=== PATIENT | female | born 1970 | race Caucasian/White ===

== ENCOUNTER 2018-03-04 00:13 | Emergency (ER) | payer OTHER ==
[~2018-03-04] VITALS: Ht 157.5 cm; Wt 60.8 kg
[2018-03-04 00:15] VITALS: BP 132/97
== END 2018-03-04 02:25 | disposition home or self-care (01) ==
LOC: ER 00:13
DX: R05 Cough (principal); R09.81 Nasal congestion
CPT/HCPCS: 71045; 99283; A4606; Z7610

== ENCOUNTER 2018-05-02 11:44 | Emergency (ER) | payer OTHER ==
[~2018-05-02] VITALS: Ht 154.9 cm; Wt 54.9 kg
[2018-05-02 12:29] LABS: APPEARANCE,URINE Slightly Cloudy (CLEAR); BILIRUBIN,URINE LARGE (NEGATIVE); BLOOD, URINE Trace-lysed Ery/uL (NEGATIVE); COLOR,URINE Dark (YELLOW); KETONES,URINE Trace (NEGATIVE); LEUKOCYTE ESTERASE ,URINE Negative (NEGATIVE); NITRITE, URINE Negative (NEGATIVE); PROTEIN,URINE 100 mg/dl (NEGATIVE); UGLUCOSE Negative (NEGATIVE)
[2018-05-02] MEDS ORDERED: ONDANSETRON HCL/PF 4 MG/2 ML VIAL IVP ONE (12:30)
[2018-05-02] MEDS ORDERED: MORPHINE SULFATE INJ 2 MG/ML DISP.SYRIN IV ONE (12:30)
[2018-05-02] MEDS ORDERED: IV NS 0.9% 1,000 ML BAG IV ONE (12:30)
[2018-05-02 12:32] LABS: BACTERIA,URINE Few /HPF (None Seen); SQUAMOUS EPITHELIAL CELL,UR Few /HPF (None Seen); URINE AMORPHOUS URATE Moderate /HPF (None Seen)
[2018-05-02] MEDS ORDERED: ONDANSETRON HCL/PF 4 MG/2 ML VIAL ONE ×2 (12:33→18:12)
[2018-05-02] MEDS ORDERED: MORPHINE SULFATE INJ 4 MG/ML DISP.SYRIN ONE ×2 (12:34→18:13)
[2018-05-02 12:46] LABS: BASOPHILS % (AUTO) 0.6 % (0.0-2.0); EOSINOPHILS % (AUTO) 0.7 % (0.0-6.0); HEMATOCRIT 39 % (33-45); HEMOGLOBIN 12.7 g/dL (11.5-14.8); LYMPHOCYTES # (AUTO) 0.7 /CMM (0.8-4.8); LYMPHOCYTES % (AUTO) 10.9 % (20.0-44.0); MEAN CORPUSCULAR HEMOGLOBIN 26 PG (26.0-33.0); MEAN CORPUSCULAR HGB CONC 33 g/dl (31.0-36.0); MEAN CORPUSCULAR VOLUME 77 fL (82-100); MONOCYTES # (AUTO) 0.3 /CMM (0.1-1.30); MONOCYTES % (AUTO) 4.4 % (2.0-12.0); NEUTROPHILS # (AUTO) 5.8 /CMM (1.8-8.9); NEUTROPHILS % (AUTO) 83.4 % (43.0-81.0); PLATELET COUNT (AUTO) 229 /CMM (150-450); RDW COEFFICIENT OF VARIATION 14.5 (11.5-15.0); RED BLOOD CELL COUNT(AUTO) 4.99 MIL/uL (4.0-5.2); WHITE BLOOD COUNT (AUTO) 6.8 K/uL (4.3-11.0)
--- NOTE | 2018-05-02 12:46 | NUR ---
DIFFUSE ABDOMINAL PAIN AND NAUSEA R/T BACK X 2 DAY. NAD NOTED, VSS, RESP EVEN AND UNLABORED, PT WAS PUT ON MONITOR. AT BS.
[2018-05-02 12:53] LABS: CALCIUM, SERUM 8.8 mg/dL (8.5-10.1); CREATININE 0.7 mg/dL (0.6-1.3); POTASSIUM 3.4 mmol/L (3.5-5.1)
[2018-05-02 13:00] LABS: ALBUMIN 3.7 g/dL (3.4-5.0); BILIRUBIN,DIRECT 2.5 mg/dL (0.0-0.2); BILIRUBIN,TOTAL 3.7 mg/dL (0.2-1.0); TOTAL PROTEIN, SERUM 7.5 g/dL (6.4-8.2)
[2018-05-02] MEDS ORDERED: PIPERACILLIN /TAZOBACTAM 3.375 G in IV D5W 50 ML IV ONE (14:00)
[2018-05-02] MEDS ORDERED: PIPERACILLIN /TAZOBACTAM 3.375 G VIAL IV ONE (14:01)
--- NOTE | 2018-05-02 14:59 | NUR ---
CALLED [facility] FOR HIGHER LEVEL OF CARE [place]
--- NOTE | 2018-05-02 15:54 | NUR ---
CALLED [facility] ([facility]EEPER) FOR UPDATE - I WAS INFORMED THAT [facility] AND [facility] ARE UNABLE TO ACCEPT THE CASE - AWAITING RESPONSE FROM OTHER FACILITES THAT [facility] CONTACTED
--- NOTE | 2018-05-02 16:18 | NUR ---
LAN CALLED BACK AND WANTED TO VERIFY THAT FAMILY AND PATIENT APPROVED REACHING OUT TO [facility] FOR TRANSFER FOR HIGHER LEVEL OF CARE - AWAITING DETAILS FROM DIALLO IN REGARDS TO OUTCOME OF TRANSFER
--- NOTE | 2018-05-02 16:53 | NUR ---
DR. GRIFFITHS FROM [place] SPOKE WITH DR. QUINTANILLA IN REGARDS TO TRANSFER - INFORMED BY DR. KELLY THAT PATIENT IS ACCEPTED BY DR. GRIFFITHS
--- NOTE | 2018-05-02 17:04 | NUR ---
ACCEPTING DR AT [facility] IS DR. FLORES
--- NOTE | 2018-05-02 18:17 | NUR ---
RECEIVED VERBAL FROM DR QUINTANILLA TO GIVEN 4MG OF MORPHINE AND 4MG OF ZOFRAN, ORDER CARRIED OUT.
[2018-05-02] MEDS ORDERED: MORPHINE SULFATE INJ 10 MG/ML DISP.SYRIN IV STA (18:37)
[2018-05-02] MEDS ORDERED: ONDANSETRON HCL/PF 4 MG/2 ML VIAL IV STA (18:37)
--- NOTE | 2018-05-02 18:54 | NUR ---
SPOKE WITH DANO (NEW [employer] D[employer]LL OPERATOR) - AND WAS INFORMED THAT [facility] HAS STATED THEY DO NOT HAVE TRANSFER DETAILS FOR THE PATIENT OF YET - I WAS ALSO INFORMED THAT THERE SHOULD BE MORE INFORMATION ANY MOMENT NOW
--- NOTE | 2018-05-02 19:13 | NUR ---
REPORT RECEIVED FROM FEI FONSECA FOR [facility].
--- NOTE | 2018-05-02 19:21 | NUR ---
SPOKE WITH DANO AGAIN IN REGARDS TO TRANSFER - I WAS INFORMED THAT WE ARE STILL WAITING ON BED FROM [facility] STATED THE PATIENT THE PATIENT WAS NOT ELIGABLE MEMBER DISPITE BEING AN ACTIVE MEMBER - I WAS INFORMED THAT THIS ISSUE IS BEING RESOLVED AND WE SHOULD HAVE TRANSFER DETAILS SHORTLY
--- NOTE | 2018-05-02 22:56 | NUR ---
DANO IS NO LONGER AVAILABLE AT THIS TIME - WILL REACH OUT TO [facility] FOR UPDATE
--- NOTE | 2018-05-02 23:00 | NUR ---
WAS REFERRED TO [facility] CASINO MANAGEROTHER SALES SUPPORT WORKER -
--- NOTE | 2018-05-02 23:04 | NUR ---
SPOKE WITH MIKI - WAS INFORMED THAT THE COORDINATOR WILL CALL BACK IN ABOUT 10 MINUTES FOR UPDATES FOR TRANSFER
--- NOTE | 2018-05-02 23:31 | NUR ---
SPOKE WITH [facility] - WAS INFORMED THAT THEY ARE UNABLE TO TRANSFER THE PATIENT TO [facility] THEY ARE NOT ACCEPTING THE PATIENT - [facility] IS REFUSING TO TAKE PATIENT THEY ARE NOT ACCEPTING [facility]'S AUTHORIZATION AND ARE ONLY LOOKING AT [facility] FOR PAYMENT ON VISIT - I WAS INFORMED THAT THE REGAL DIRECTOR (TIM) WILL SPEAK WITH [facility] TO RESOLVE THE ISSUE TOMORROW - THEY ARE EXPECTING A TRANSFER TO BE FURTHER ALONG UNTIL 1000 AM TOMORROW
--- NOTE | 2018-05-03 00:06 | NUR ---
[facility] CALLED FOR HIGHER LEVEL OF CARE REQUEST.
--- NOTE | 2018-05-03 00:32 | NUR ---
PT RESTING QUIETLY, AROUSES EASILY. VSS/RESP EVEN UNLABORED. RN TO CONTINUE MONITORING PROVIDING SAFETY/COMFORT MEASURES.
--- NOTE | 2018-05-03 01:07 | NUR ---
Patient does not wish to proceed with medical care recommended by Dr. SHETTY. Patient given information related to possible complications, up to and including , which could occur as a result of leaving the hospital at this time. Patient verbalizes understanding of risks involved due to leaving against medical advice. Patient has signed AMA form. IV removed. Catheter intact and site benign. Pressure and 4x4 applied to site. No bleeding noted.
[2018-05-03 01:11] VITALS: BP 156/87
== END 2018-05-03 01:13 | disposition left against medical advice (07) ==
LOC: ER 11:46
DX: K85.90 Acute pancreatitis without necrosis or infection, unspecified (principal)
CPT/HCPCS: 36415; 74176; 80048; 80076; 81001; 83605; 83690; 84703; 85025; 87040 ×2; 96365; 96375; 96376; 99285; A4606; J2270 ×2; J2405 ×2; J2543 ×2; J7030; J7060; Z7610; 81000-TC

== ENCOUNTER 2020-05-01 15:48 | Emergency (ER) | payer OTHER ==
[~2020-05-01] VITALS: Ht 154.9 cm; Wt 63.5 kg
--- NOTE | 2020-05-01 15:54 | NUR ---
CAME IN FOR VAGINAL BLEEDING x 2 DAYS, ABDOMINAL PAIN, +N/V. 9/10 PS. "IT'S TIME FOR MY PERIOD BUT IT'S JUST TOO MUCH". LMP 04/06/2020. TO ER BED 16, HOKED TO MONITOR, CHANGED TO HOSP GOWN, WARM BLANKET PROVIDED, PATIENT AAO x 4, BREATHING EVEN AND UNLABORED. AWAITING MD SHARIF
--- NOTE | 2020-05-01 15:57 | NUR ---
DR CARRENO AT BEDSIDE FOR EVAL
[2020-05-01 16:47] LABS: BASOPHILS % (AUTO) 0.6 % (0.0-2.0); EOSINOPHILS % (AUTO) 2.7 % (0.0-6.0); HEMATOCRIT 24 % (33-45); HEMOGLOBIN 7.7 g/dL (11.5-14.8); LYMPHOCYTES # (AUTO) 1.3 /CMM (0.8-4.8); LYMPHOCYTES % (AUTO) 26.7 % (20.0-44.0); MEAN CORPUSCULAR HGB CONC 32 g/dl (31.0-36.0); MEAN CORPUSCULAR VOLUME 81 fL (82-100); MONOCYTES # (AUTO) 0.3 /CMM (0.1-1.30); MONOCYTES % (AUTO) 5.5 % (2.0-12.0); NEUTROPHILS % (AUTO) 64.5 % (43.0-81.0); PLATELET COUNT (AUTO) 234 /CMM (150-450); RED BLOOD CELL COUNT(AUTO) 2.93 MIL/uL (4.0-5.2); WHITE BLOOD COUNT (AUTO) 4.7 K/uL (4.3-11.0)
[2020-05-01 17:01] LABS: APPEARANCE,URINE SL CLOUDY (CLEAR); BILIRUBIN,URINE NEGATIVE (NEGATIVE); BLOOD, URINE LARGE Ery/uL (NEGATIVE); COLOR,URINE RED (YELLOW); KETONES,URINE NEGATIVE (NEGATIVE); LEUKOCYTE ESTERASE ,URINE NEGATIVE (NEGATIVE); NITRITE, URINE NEGATIVE (NEGATIVE); PH,URINE 7.5 (5.0-8.0); PROTEIN,URINE 30 mg/dl (NEGATIVE); UGLUCOSE NEGATIVE (NEGATIVE); UROBILINOGEN,URINE 0.2 EU/dL (0.2)
[2020-05-01 17:13] LABS: BACTERIA,URINE Rare /HPF (None Seen); RBC,URINE TOO NUMEROUS TO COUN /HPF (0-2); SQUAMOUS EPITHELIAL CELL,UR 0-2 /HPF (None Seen)
--- NOTE | 2020-05-01 17:17 | NUR ---
ACCOMPANIED US TECH AT BEDSIDE DURING INTRAVAGINAL MICHA
[2020-05-01 17:52] LABS: EOSINOPHILS % (MANUAL) 1 % (0-4); LYMPHOCYTES % (MANUAL) 21 % (16-48); MONOCYTES % (MANUAL) 3 % (0-11.0); NEUTROPHILS % (MANUAL) 75 (42-76)
--- NOTE | 2020-05-01 18:13 | NUR ---
PT. VERBALIZED UNDERSTANDING OF AFTERCARE INSTRUCTIONS.Patient discharged to home in stable condition. Written and verbal after care instructions given. Patient verbalizes understanding of instruction.
[2020-05-01 18:15] VITALS: BP 140/87
== END 2020-05-01 18:15 | disposition home or self-care (01) ==
LOC: ER 15:48
DX: D25.9 Leiomyoma of uterus, unspecified (principal); D64.9 Anemia, unspecified
CPT/HCPCS: 36415; 76856-TC; 81000-TC; 84703-TC; 85025-TC

== ENCOUNTER 2020-05-03 10:44 | Emergency (ER) | payer OTHER ==
[~2020-05-03] VITALS: Ht 157.5 cm; Wt 59.0 kg
--- NOTE | 2020-05-03 10:45 | NUR ---
PT BIB SELF C/O DIZZINESS X 2 DAYS WORST TODAY. STILL HAVING VAGINAL BLEEDING. PT IS AAOX4, NOT IN RESPIRATORY DISTRESS, HOOKED TO DRIVER SALES, KEPT RESTED AND COMFORTABLE. WILL CONTINUE TO MONITOR.
--- NOTE | 2020-05-03 11:03 | NUR ---
AT BEDSIDE FOR EVAL.
[2020-05-03 11:18] LABS: LYMPHOCYTES # (AUTO) 1.1 /CMM (0.8-4.8); MEAN CORPUSCULAR HGB CONC 32 g/dl (31.0-36.0); MONOCYTES # (AUTO) 0.2 /CMM (0.1-1.30); NEUTROPHILS # (AUTO) 1.8 /CMM (1.8-8.9); WHITE BLOOD COUNT (AUTO) 3.2 K/uL (4.3-11.0)
--- NOTE | 2020-05-03 11:19 | NUR ---
ER PHLEB AT BEDSIDE FOR BLOOD DRAW.
[2020-05-03 11:21] LABS: BASOPHILS % (AUTO) 1.1 % (0.0-2.0); EOSINOPHILS % (AUTO) 4.6 % (0.0-6.0); HEMATOCRIT 21 % (33-45); LYMPHOCYTES % (AUTO) 32.5 % (20.0-44.0); MEAN CORPUSCULAR VOLUME 81 fL (82-100); MONOCYTES % (AUTO) 5.7 % (2.0-12.0); NEUTROPHILS % (AUTO) 56.1 % (43.0-81.0); PLATELET COUNT (AUTO) 240 /CMM (150-450); RED BLOOD CELL COUNT(AUTO) 2.59 MIL/uL (4.0-5.2)
[2020-05-03 11:28] LABS: CALCIUM, SERUM 8.4 mg/dL (8.5-10.1); CARBON DIOXIDE 27 mmol/L (21-32); CHLORIDE 103 mmol/L (98-107); CREATININE 0.7 mg/dL (0.6-1.3); GLUCOSE 96 mg/dL (74-106); POTASSIUM 3.8 mmol/L (3.5-5.1); SODIUM SERUM 138 mmol/L (136-145); UREA NITROGEN, BLOOD 14 mg/dL (7-18)
[2020-05-03 11:32] LABS: HEMOGLOBIN 6.8 g/dL (11.5-14.8)
[2020-05-03 11:33] LABS: ALANINE AMINOTRANSFERASE 25 U/L (12-78); ALBUMIN 3.5 g/dL (3.4-5.0); ALKALINE PHOSPHATASE 44 U/L (46-116); ASPARTATE AMINOTRANSFERASE 16 U/L (15-37); BILIRUBIN,DIRECT 0.1 mg/dL (0.0-0.2); BILIRUBIN,TOTAL 0.2 mg/dL (0.2-1.0); LIPASE 124 U/L (73-393); TOTAL PROTEIN, SERUM 6.9 g/dL (6.4-8.2)
--- NOTE | 2020-05-03 11:45 | NUR ---
CALLED DR. MACKAY
--- NOTE | 2020-05-03 11:47 | NUR ---
CALLED HER CELL [phone] LEFT .
[2020-05-03 12:33] LABS: EOSINOPHILS % (MANUAL) 2 % (0-4); LYMPHOCYTES % (MANUAL) 40 % (16-48); MONOCYTES % (MANUAL) 6 % (0-11.0); NEUTROPHILS % (MANUAL) 52 (42-76)
--- NOTE | 2020-05-03 13:00 | NUR ---
PER NO NEED FOR ADMISSION JUST TRANSFUSE 2 UNITS OF PRBC.
--- NOTE | 2020-05-03 13:10 | NUR ---
BLOOD TRANSFUSION STARTED. CHECK BY 2 RN'S. PT V/S STABLE.
--- NOTE | 2020-05-03 15:20 | NUR ---
FIRST UNIT OF PRBC COMPLETED. PT IS AAOX4, NOT IN RESPIRATORY DISTRESS, V/S STABLE. NO ADVERSE REACTION NOTED. AWARE.
--- NOTE | 2020-05-03 15:35 | NUR ---
2ND UNIT OF PRBC STARTED. V/S STABLE. CHECKED BY 2 RN'S.
--- NOTE | 2020-05-03 17:35 | NUR ---
2ND UNIT OF PRBC DONE. PT IS AAOX4, NOT IN RESPIRATORY DISTRESS, V/S STABLE. NO ADVERSE REACTION NOTED. AWARE.
--- NOTE | 2020-05-03 17:38 | NUR ---
IV removed. Catheter intact and site benign. Pressure and 4x4 applied to site. No bleeding noted. Patient discharged to home in stable condition. Written and verbal after care instructions given. Patient verbalizes understanding of instruction.
[2020-05-03 17:40] VITALS: BP 139/88
== END 2020-05-03 17:40 | disposition home or self-care (01) ==
LOC: ER 10:46
DX: N92.0 Excessive and frequent menstruation with regular cycle (principal); D64.9 Anemia, unspecified; D25.9 Leiomyoma of uterus, unspecified
CPT/HCPCS: 36415; 36430; 80048; 80076; 83690; 84484; 85025; 85730; 86850; 86921 ×2; 93005; 99291; J7050 ×2; P9016 ×2

== ENCOUNTER 2020-06-03 13:20 | Emergency (ER) | payer OTHER ==
[~2020-06-03] VITALS: Ht 157.5 cm; Wt 61.7 kg
[2020-06-03] MEDS ORDERED: IV NS 0.9% 500 ML BAG IV ONE (14:00)
--- NOTE | 2020-06-03 14:32 | NUR ---
"Sent by PMD for abnormal blood test. Anemia- vaginal bleed from uterine fibroids LMP 10Dago". PT AAOX4, VSS. RR EVEN & UNLABORED. DENIES CP, SOB, DIZZINESS, N/V AT THIS TIME. PT SEEN & EVAL'D BY DR. QUINTANILLA. PLACED ON GLASS FINISHER, SR. WILL CONT TO MONITOR.
[2020-06-03 14:58] LABS: BASOPHILS % (AUTO) 0.5 % (0.0-2.0); EOSINOPHILS % (AUTO) 4.4 % (0.0-6.0); LYMPHOCYTES # (AUTO) 1.2 /CMM (0.8-4.8); LYMPHOCYTES % (AUTO) 22.6 % (20.0-44.0); MEAN CORPUSCULAR HGB CONC 32 g/dl (31.0-36.0); MEAN CORPUSCULAR VOLUME 90 fL (82-100); MONOCYTES # (AUTO) 0.3 /CMM (0.1-1.30); NEUTROPHILS # (AUTO) 3.6 /CMM (1.8-8.9); NEUTROPHILS % (AUTO) 67.5 % (43.0-81.0); PLATELET COUNT (AUTO) 303 /CMM (150-450); RED BLOOD CELL COUNT(AUTO) 2.27 MIL/uL (4.0-5.2); WHITE BLOOD COUNT (AUTO) 5.4 K/uL (4.3-11.0)
[2020-06-03 15:02] LABS: HEMOGLOBIN 6.6 g/dL (11.5-14.8)
[2020-06-03 15:03] LABS: HEMATOCRIT 20 % (33-45)
[2020-06-03 15:18] LABS: CALCIUM, SERUM 8.1 mg/dL (8.5-10.1); CREATININE 0.7 mg/dL (0.6-1.3); POTASSIUM 3.7 mmol/L (3.5-5.1)
[2020-06-03 16:38] LABS: EOSINOPHILS % (MANUAL) 3 % (0-4); LYMPHOCYTES % (MANUAL) 17 % (16-48); MONOCYTES % (MANUAL) 5 % (0-11.0); NEUTROPHILS % (MANUAL) 75 (42-76)
[2020-06-03] MEDS ORDERED: FERR325T24 PO (16:42)
[2020-06-03] MEDS ORDERED: MEDR10TA10 PO (16:42)
--- NOTE | 2020-06-03 16:55 | NUR ---
NEGATIVE COVID PER LAB
--- NOTE | 2020-06-03 17:50 | NUR ---
STARTED BLOOD TRANSFUSION, PT JOSE M WELL. WILL CONT TO MONITOR.
--- NOTE | 2020-06-03 17:57 | NUR ---
SPOKE TO CM FROM [facility], PT IS CAPITATED TO [facility]. WILL SET UP TO DR. GORMAN.
--- NOTE | 2020-06-03 19:20 | NUR ---
PT JOSE M BLOOD TRANSFUSION, NO S/S OF ADVERSE REACTION NOTED @ THIS TIME. WILL CONT TO MONITOR.
--- NOTE | 2020-06-03 20:05 | NUR ---
2000 STARTED 2ND BLOOD TRANSFUSION, PT JOSE M WELL & INFUSING WELL.
--- NOTE | 2020-06-03 21:02 | NUR ---
PT JOSE M BLOOD TRANSFUSION, NO S/S OF ADVERSE REACTION NOTED @ THIS TIME. WILL CONT TO MONITOR.
[2020-06-03 21:43] VITALS: BP 147/89
--- NOTE | 2020-06-03 21:43 | NUR ---
Patient discharged to home in stable condition. Written and verbal after care instructions given. Patient verbalizes understanding of instruction. IV removed. Catheter intact and site benign. Pressure and 4x4 applied to site. No bleeding noted.
== END 2020-06-03 21:44 | disposition home or self-care (01) ==
LOC: ER 14:20
DX: D50.0 Iron deficiency anemia secondary to blood loss (chronic) (principal); D25.9 Leiomyoma of uterus, unspecified; N92.0 Excessive and frequent menstruation with regular cycle; Z20.828 Contact with and (suspected) exposure to other viral communicable diseases
CPT/HCPCS: 36415; 36430; 71045; 76856; 80048; 84702; 85025; 85730; 86850; 86921; 87081; 87426; 93005; 99285; C9803; J7040 ×2; J7050; P9016 ×2